=== PATIENT | female | born 1990 | race Caucasian/White ===

== ENCOUNTER 2017-07-23 21:19 | Emergency (ER) | payer OTHER ==
[~2017-07-23] VITALS: Ht 165.1 cm; Wt 124.7 kg
[2017-07-23] MEDS ORDERED: CELEXA10 MG (21:28)
[2017-07-23 21:48] LABS: URINE BILIRUBIN NEGATIVE (Negative); URINE BLOOD 1+ (Negative); URINE CLARITY CLEAR; URINE COLOR YELLOW; URINE GLUCOSE-RANDOM NEGATIVE (Negative); URINE KETONES NEGATIVE (Negative); URINE LEUKOCYTES-REFLEX TRACE (Negative); URINE NITRITE-REFLEX NEGATIVE (Negative); URINE PROTEIN NEGATIVE (Negative); URINE SPECIFIC GRAVITY >= 1.030 (1.005-1.030); URINE UROBILINOGEN 0.2 E.U./dl (0.2-1.0)
[2017-07-23 21:49] LABS: ABSOLUTE BASOPHILS 0.1 thou/uL (0.0-0.2); ABSOLUTE EOSINOPHILS 0.9 thou/uL (0.0-0.7); ABSOLUTE LYMPHOCYTES 3.2 thou/uL (0.8-5.3); ABSOLUTE MONOCYTES 0.9 thou/uL (0.0-1.2); ABSOLUTE NEUTROPHILS 13.1 thou/uL (1.6-8.1); BASOPHILS 0.5 %; HEMOGLOBIN 13.6 gm/dL (12.0-15.0); LYMPHOCYTES 17.7 %; MCH 25.9 pg (26.0-34.0); MCHC 32.5 g/dL (28.0-37.0); MCV 79.9 fL (80.0-100.0); MONOCYTES 5.1 %; MPV 8.8 fl. (7.2-11.1); NUCLEATED RBCS 0 /100WBC; PLATELET COUNT* 276 thou/uL (150-400); POLYS 71.7 %; RBC 5.26 mil/uL (4.20-5.00); RDW-CV 15.3 % (10.5-14.5); WBC 18.2 thou/uL (4.0-11.0)
[2017-07-23 21:57] LABS: SQUAMOUS >10 Many /LPF (0-3)
[2017-07-23 21:58] LABS: CASTS None Seen /LPF (None Seen); CRYSTALS None Seen /LPF (None Seen); MUCUS None Seen strn/LPF (None Seen)
[2017-07-23 21:59] LABS: ANION GAP 12 mmol/L (7-16); BUN 10 mg/dL (7-18); CALCIUM 9.3 mg/dL (8.5-10.1); CHLORIDE 103 mmol/L (98-107); CO2 25 mmol/L (21-32); CREATININE 0.7 mg/dL (0.6-1.3); GLUCOSE 93 mg/dL (70-99); POTASSIUM 3.8 mmol/L (3.5-5.1); SODIUM 140 mmol/L (136-145)
[2017-07-23 22:01] LABS: URINE RBC 0-2 Rare /HPF (0-2); URINE WBC-REFLEX 0-5 Rare /HPF (0-5)
[2017-07-23 22:06] LABS: ALBUMIN 3.6 g/dL (3.4-5.0); ALKALINE PHOSPHATASE 81 U/L (46-116); LIPASE 153 U/L (73-393); SGOT 31 U/L (15-37); SGPT 23 U/L (30-65); TOTAL BILIRUBIN 0.2 mg/dL (<0.1-1.0); TOTAL PROTEIN 7.6 g/dL (6.4-8.2); TROPONIN-I LEVEL <0.06 ng/mL (<0.06)
[2017-07-23] MEDS ORDERED: CARAFATE 1 GM TA1 G1 PO (23:02)
[2017-07-23 23:14] VITALS: BP 115/70
--- NOTE | 2017-07-24 14:49 | EKG ---
[place] [address] ELECTROCARDIOGRAM REPORT Name: KALA PICKERING Room: [facility]#: [id number] Admission: 07/23/17 Attend Phys: Discharge: 07/23/17 Date of : [birth year] Report #: [id number] THIS REPORT FOR: //name// [facility] ED Test Date: 2017-07-23 Test Time: 21:31:59 Pat Name: KALA PICKERING Department: Room: Gender: F [employer]: OLIVIA : 1990 Requested By: Gonzalo Bradshaw Order Number: [id number] MD: Wilfred Guerrero Measurements Intervals [place] Rate: 88 P: 43 [place]: 131 QRS: 26 QRSD: 82 T: -16 QT: 322 QTc: 390 Interpretive Statements Sinus rhythm No previous ECG available for comparison Electronically Signed On 07-24-2017 14:49:22 CDT by Wilfred Guerrero [email or web address] <ELECTRONICALLY SIGNED> By: Wilfred Guerrero MD, [facility] 07/24/17 1449 2131 2131 Wilfred Guerrero MD, FACC /EPI
== END 2017-07-23 23:14 | disposition home or self-care (01) ==
LOC: M.ERS 21:19
PROVIDERS: Emergency Medicine Emergency Medical Services
DX: R10.13 Epigastric pain (principal); R11.0 Nausea

== ENCOUNTER 2017-09-13 08:46 | Emergency (ER) | payer OTHER ==
[~2017-09-13] VITALS: Ht 162.6 cm; Wt 122.5 kg
[~2017-09-13 08:46] MED LIST: CARAFATE 1 GM TA1 G1 PO; CELEXA10 MG
[2017-09-13 09:21] LABS: HEMATOCRIT 39.6 % (37.0-47.0); HEMOGLOBIN 13.1 gm/dL (12.0-15.0); MCH 26.3 pg (26.0-34.0); MCHC 33.2 g/dL (28.0-37.0); MCV 79.2 fL (80.0-100.0); MPV 8.9 fl. (7.2-11.1); NUCLEATED RBCS 0 /100WBC; PLATELET COUNT* 249 thou/uL (150-400); RDW-CV 14.8 % (10.5-14.5); WBC 9.8 thou/uL (4.0-11.0)
[2017-09-13 09:21] LABS: URINE BILIRUBIN NEGATIVE (Negative); URINE BLOOD 3+ (Negative); URINE CLARITY CLEAR; URINE COLOR YELLOW; URINE GLUCOSE-RANDOM NEGATIVE (Negative); URINE KETONES TRACE (Negative); URINE LEUKOCYTES-REFLEX 1+ (Negative); URINE NITRITE-REFLEX NEGATIVE (Negative); URINE PROTEIN 1+ (Negative); URINE UROBILINOGEN 0.2 E.U./dl (0.2-1.0)
[2017-09-13 09:27] LABS: CASTS None Seen /LPF (None Seen); CRYSTALS None Seen /LPF (None Seen); MUCUS None Seen strn/LPF (None Seen); SQUAMOUS >10 Many /LPF (0-3); URINE WBC-REFLEX 6-15 Few /HPF (0-5)
[2017-09-13 09:30] LABS: CALCIUM 9.3 mg/dL (8.5-10.1); CREATININE 0.8 mg/dL (0.6-1.3); POTASSIUM 4.1 mmol/L (3.5-5.1)
[2017-09-13 09:40] LABS: ALBUMIN 3.5 g/dL (3.4-5.0); TOTAL BILIRUBIN 0.3 mg/dL (<0.1-1.0)
[2017-09-13 09:44] LABS: ABSOLUTE BASOPHILS 0.1 thou/uL (0.0-0.2); ABSOLUTE EOSINOPHILS 1.9 thou/uL (0.0-0.7); ABSOLUTE MONOCYTES 0.4 thou/uL (0.0-1.2); ABSOLUTE NEUTROPHILS 5.5 thou/uL (1.6-8.1); PLATELET ESTIMATE ADEQUATE
[2017-09-13] MEDS ORDERED: PHENERGAN 25 MG25 M1 PO (10:40)
[2017-09-13] MEDS ORDERED: ULTRAM 50MG TAB50 MG PO (10:40)
[2017-09-13] MEDS ORDERED: CARAFATE 1 GM TA1 GM PO (10:40)
[2017-09-13 11:27] VITALS: BP 111/70
[2017-09-14 07:43] LABS: HEPATITIS B SURFACE AG Negative (Negative)
== END 2017-09-13 11:28 | disposition home or self-care (01) ==
LOC: M.ERS 08:46
PROVIDERS: Personal Emergency Response Attendant
DX: K27.9 Peptic ulcer, site unspecified, unspecified as acute or chronic, without hemorrhage or perforation (principal); F32.9 Major depressive disorder, single episode, unspecified; F41.9 Anxiety disorder, unspecified; Z98.890 Other specified postprocedural states

== ENCOUNTER 2017-10-03 21:44 | Emergency (ER) | payer OTHER ==
[~2017-10-03] VITALS: Ht 165.1 cm; Wt 116.1 kg
[~2017-10-03 21:44] MED LIST changes: +CARAFATE 1 GM TA1 GM PO; +PHENERGAN 25 MG25 M1 PO; +ULTRAM 50MG TAB50 MG PO
[2017-10-03 22:37] LABS: HEMATOCRIT 40.2 % (37.0-47.0); HEMOGLOBIN 13.4 gm/dL (12.0-15.0); MCH 26.6 pg (26.0-34.0); MCHC 33.4 g/dL (28.0-37.0); MCV 79.9 fL (80.0-100.0); MPV 9.2 fl. (7.2-11.1); NUCLEATED RBCS 0 /100WBC; PLATELET COUNT* 291 thou/uL (150-400); RBC 5.03 mil/uL (4.20-5.00); RDW-CV 14.9 % (10.5-14.5); WBC 9.6 thou/uL (4.0-11.0)
[2017-10-03 22:37] LABS: URINE BILIRUBIN NEGATIVE (Negative); URINE BLOOD NEGATIVE (Negative); URINE CLARITY CLEAR; URINE COLOR YELLOW; URINE GLUCOSE-RANDOM NEGATIVE (Negative); URINE KETONES TRACE (Negative); URINE NITRITE-REFLEX NEGATIVE (Negative); URINE PROTEIN 1+ (Negative); URINE UROBILINOGEN 0.2 E.U./dl (0.2-1.0)
[2017-10-03 22:44] LABS: CALCIUM 9.3 mg/dL (8.5-10.1); CREATININE 0.8 mg/dL (0.6-1.3); POTASSIUM 3.3 mmol/L (3.5-5.1)
[2017-10-03 22:46] LABS: URINE LEUKOCYTES-REFLEX 3+ (Negative)
[2017-10-03 22:48] LABS: ALBUMIN 3.7 g/dL (3.4-5.0); TOTAL BILIRUBIN 0.3 mg/dL (<0.1-1.0); TOTAL PROTEIN 7.2 g/dL (6.4-8.2)
[2017-10-03 23:20] LABS: ABSOLUTE EOSINOPHILS 0.7 thou/uL (0.0-0.7); ABSOLUTE LYMPHOCYTES 4.3 thou/uL (0.8-5.3); ABSOLUTE MONOCYTES 0.4 thou/uL (0.0-1.2); ABSOLUTE NEUTROPHILS 4.2 thou/uL (1.6-8.1); PLATELET ESTIMATE ADEQUATE
[2017-10-03 23:23] LABS: CASTS None Seen /LPF (None Seen); SQUAMOUS >10 Many /LPF (0-3); URINE WBC-REFLEX >25 Many /HPF (0-5)
[2017-10-03 23:24] LABS: BACTERIA-REFLEX >30 Many /HPF (None Seen); CRYSTALS None Seen /LPF (None Seen); MUCUS 4-6 Moderate strn/LPF (None Seen); URINE RBC 0-2 Rare /HPF (0-2)
[2017-10-04] MEDS ORDERED: HYDROCODON-ACE1 EAC7 PO (00:07)
[2017-10-04] MEDS ORDERED: BACTRIM DS TAB1 EACH PO (00:16)
[2017-10-04 00:25] VITALS: BP 112/80
== END 2017-10-04 00:28 | disposition home or self-care (01) ==
LOC: M.ERS 21:44
PROVIDERS: Emergency Medicine
DX: N39.0 Urinary tract infection, site not specified (principal); F41.9 Anxiety disorder, unspecified; F32.9 Major depressive disorder, single episode, unspecified

== ENCOUNTER 2017-10-15 22:24 | Emergency (ER) | payer OTHER ==
[~2017-10-15] VITALS: Ht 162.6 cm; Wt 113.4 kg
[~2017-10-15 22:24] MED LIST changes: +BACTRIM DS TAB1 EACH PO; +HYDROCODON-ACE1 EAC7 PO
[2017-10-15] MEDS ORDERED: PROTONIX40 M1 PO (22:34)
[2017-10-15 22:47] LABS: ABSOLUTE BASOPHILS 0.1 thou/uL (0.0-0.2); ABSOLUTE LYMPHOCYTES 3.1 thou/uL (0.8-5.3); ABSOLUTE MONOCYTES 0.5 thou/uL (0.0-1.2); ABSOLUTE NEUTROPHILS 5.6 thou/uL (1.6-8.1); BASOPHILS 1.1 %; EOSINOPHILS 9.8 %; HEMATOCRIT 40.8 % (37.0-47.0); HEMOGLOBIN 13.6 gm/dL (12.0-15.0); LYMPHOCYTES 30.5 %; MCH 26.9 pg (26.0-34.0); MCHC 33.3 g/dL (28.0-37.0); MCV 80.9 fL (80.0-100.0); MONOCYTES 4.5 %; MPV 9.5 fl. (7.2-11.1); NUCLEATED RBCS 0 /100WBC; PLATELET COUNT* 253 thou/uL (150-400); POLYS 54.1 %; RBC 5.05 mil/uL (4.20-5.00); RDW-CV 14.8 % (10.5-14.5); WBC 10.3 thou/uL (4.0-11.0)
[2017-10-15 22:57] LABS: CALCIUM 9.1 mg/dL (8.5-10.1); CREATININE 0.7 mg/dL (0.6-1.3); POTASSIUM 3.3 mmol/L (3.5-5.1)
[2017-10-15 23:01] LABS: ALBUMIN 3.6 g/dL (3.4-5.0); TOTAL BILIRUBIN 0.3 mg/dL (<0.1-1.0); TOTAL PROTEIN 7.1 g/dL (6.4-8.2)
[2017-10-15] MEDS ORDERED: ZOFRAN ODT4 MG PO (23:10)
[2017-10-15] MEDS ORDERED: HYDROCODONE-AP1 EAC6 PO (23:10)
[2017-10-15 23:12] LABS: URINE BLOOD 3+ (Negative); URINE COLOR DARK YELLOW; URINE GLUCOSE-RANDOM NEGATIVE (Negative); URINE KETONES 1+ (Negative); URINE NITRITE-REFLEX NEGATIVE (Negative); URINE PROTEIN 1+ (Negative)
[2017-10-15 23:13] LABS: URINE BILIRUBIN 1+ (Negative); URINE CLARITY HAZY; URINE LEUKOCYTES-REFLEX 2+ (Negative)
[2017-10-15] MEDS ORDERED: MACROBID 100 M100 M1 PO (23:21)
[2017-10-15 23:22] VITALS: BP 113/68
[2017-10-15 23:27] LABS: ICTOTEST (BILI CONFIRMATORY) Negative (Negative)
[2017-10-15 23:30] LABS: BACTERIA-REFLEX >30 Many /HPF (None Seen); CASTS None Seen /LPF (None Seen); CRYSTALS None Seen /LPF (None Seen); MUCUS >6 Heavy strn/LPF (None Seen); SQUAMOUS 0-3 Few /LPF (0-3); TRANSITIONAL EPITHEL CELL 0-3 Few /LPF (None Seen); WBC CLUMPS Few (None Seen)
== END 2017-10-15 23:23 | disposition home or self-care (01) ==
LOC: M.ERS 22:24
PROVIDERS: Physician Assistant
DX: N39.0 Urinary tract infection, site not specified (principal); F41.9 Anxiety disorder, unspecified; F32.9 Major depressive disorder, single episode, unspecified

== ENCOUNTER 2017-11-09 16:53 | Emergency (ER) | payer OTHER ==
[~2017-11-09] VITALS: Ht 162.6 cm; Wt 119.5 kg
[~2017-11-09 16:53] MED LIST changes: +HYDROCODONE-AP1 EAC6 PO; +MACROBID 100 M100 M1 PO; +PROTONIX40 M1 PO; +ZOFRAN ODT4 MG PO
[2017-11-09] MEDS ORDERED: TRAZODONE HCL50 MG PO (17:04)
[2017-11-09] MEDS ORDERED: [UNRECOGNIZED DRUG - OTHER] PO (17:04)
[2017-11-09 17:27] LABS: ABSOLUTE BASOPHILS 0.1 thou/uL (0.0-0.2); ABSOLUTE EOSINOPHILS 1.2 thou/uL (0.0-0.7); ABSOLUTE LYMPHOCYTES 2.9 thou/uL (0.8-5.3); ABSOLUTE MONOCYTES 0.8 thou/uL (0.0-1.2); ABSOLUTE NEUTROPHILS 8.7 thou/uL (1.6-8.1); BASOPHILS 0.7 %; EOSINOPHILS 8.7 %; HEMOGLOBIN 12.4 gm/dL (12.0-15.0); LYMPHOCYTES 21.1 %; MCH 26.6 pg (26.0-34.0); MCHC 32.7 g/dL (28.0-37.0); MCV 81.3 fL (80.0-100.0); MONOCYTES 5.5 %; NUCLEATED RBCS 0 /100WBC; PLATELET COUNT* 262 thou/uL (150-400); RBC 4.68 mil/uL (4.20-5.00); RDW-CV 15.1 % (10.5-14.5); WBC 13.6 thou/uL (4.0-11.0)
[2017-11-09 17:43] LABS: CREATININE 0.7 mg/dL (0.6-1.3); POTASSIUM 3.8 mmol/L (3.5-5.1)
[2017-11-09 17:48] LABS: ALBUMIN 3.1 g/dL (3.4-5.0); SALICYLATE < 2.8 mg/dL (2.8-20.0); TOTAL BILIRUBIN 0.1 mg/dL (<0.1-1.0)
[2017-11-09 17:49] LABS: ACETAMINOPHEN < 2 ug/mL (10-30); ALCOHOL < 10 mg/dL (<10)
[2017-11-09 18:04] LABS: URINE BILIRUBIN NEGATIVE (Negative); URINE BLOOD 3+ (Negative); URINE CLARITY CLOUDY; URINE COLOR YELLOW; URINE GLUCOSE-RANDOM NEGATIVE (Negative); URINE KETONES TRACE (Negative); URINE NITRITE-REFLEX NEGATIVE (Negative); URINE PROTEIN 1+ (Negative); URINE UROBILINOGEN 0.2 E.U./dl (0.2-1.0)
[2017-11-09 18:07] LABS: URINE LEUKOCYTES-REFLEX 2+ (Negative)
[2017-11-09 18:15] LABS: MUCUS None Seen strn/LPF (None Seen); SQUAMOUS >10 Many /LPF (0-3); URINE WBC-REFLEX 6-15 Few /HPF (0-5)
[2017-11-09 18:16] LABS: BACTERIA-REFLEX 1-9 Few /HPF (None Seen); CASTS None Seen /LPF (None Seen); CRYSTALS None Seen /LPF (None Seen)
[2017-11-09 18:18] LABS: AMP/METHAMP Negative (Negative); BARBITURATES Negative (Negative); BENZODIAZEPINES Negative (Negative); COCAINE Negative (Negative); METHADONE Negative (Negative); OPIATES Negative (Negative); PCP Negative (Negative); THC Negative (Negative)
--- NOTE | 2017-11-10 10:43 | EKG ---
[place] [address] ELECTROCARDIOGRAM REPORT Name: KALA PICKERING Room: [facility]#: [id number] Admission: 11/09/17 Attend Phys: Discharge: Date of : [birth year] Report #: [id number] THIS REPORT FOR: //name// [facility] ED Test Date: 2017-11-09 Test Time: 17:27:07 Pat Name: KALA PICKERING Department: Room: Gender: F [employer]: : 1990 Requested By: Gonzalo Bradshaw Order Number: [id number] MD: Javier Chávez Measurements Intervals [place] Rate: 87 P: 49 [place]: 130 QRS: 39 QRSD: 78 T: 10 QT: 372 QTc: 448 Interpretive Statements Sinus rhythm Compared to ECG 07/23/2017 21:31:59 No significant changes Electronically Signed On 11-10-2017 10:42:48 CDT by Javier Chávez [email or web address] <ELECTRONICALLY SIGNED> By: Javier Chávez MD, [facility] 11/10/17 1042 1727 1727 Javier Chávez MD, FACC /EPI
[2017-11-10 18:25] VITALS: BP 142/68
== END 2017-11-10 18:25 ==
LOC: M.ERS 16:53
PROVIDERS: Emergency Medicine Emergency Medical Services
DX: T43.212A Poisoning by selective serotonin and norepinephrine reuptake inhibitors, intentional self-harm, initial encounter (principal); F41.9 Anxiety disorder, unspecified; F32.9 Major depressive disorder, single episode, unspecified; Y92.213 High school as the place of occurrence of the external cause

== ENCOUNTER 2018-01-18 23:45 | Emergency (ER) | payer OTHER ==
[~2018-01-18] VITALS: Ht 162.6 cm; Wt 122.5 kg
[~2018-01-18 23:45] MED LIST changes: +TRAZODONE HCL50 MG PO; +[UNRECOGNIZED DRUG - OTHER] PO
[2018-01-19] MEDS ORDERED: PREDNISONE 20 M20 MG PO (01:00)
[2018-01-19 01:08] VITALS: BP 120/79
== END 2018-01-19 01:09 | disposition home or self-care (01) ==
LOC: M.ERS 23:45
DX: L50.9 Urticaria, unspecified (principal); T45.0X5A Adverse effect of antiallergic and antiemetic drugs, initial encounter; T38.0X5A Adverse effect of glucocorticoids and synthetic analogues, initial encounter; F41.9 Anxiety disorder, unspecified; F32.9 Major depressive disorder, single episode, unspecified; Y92.89 Other specified places as the place of occurrence of the external cause

== ENCOUNTER 2020-06-18 19:20 | Emergency (ER) | payer OTHER ==
[~2020-06-18] VITALS: Ht 170.2 cm; Wt 104.3 kg
[~2020-06-18 19:20] MED LIST changes: -CELEXA10 MG; +CELEXA10 MG PO; +PREDNISONE 20 M20 MG PO
[2020-06-18 19:36] LABS: ICTOTEST (BILI CONFIRMATORY) Negative (Negative); URINE BILIRUBIN 1+ (Negative); URINE BLOOD NEGATIVE (Negative); URINE CLARITY CLEAR; URINE COLOR YELLOW; URINE GLUCOSE-RANDOM NEGATIVE (Negative); URINE KETONES NEGATIVE (Negative); URINE LEUKOCYTES-REFLEX NEGATIVE (Negative); URINE NITRITE-REFLEX NEGATIVE (Negative); URINE PROTEIN NEGATIVE (Negative); URINE SPECIFIC GRAVITY 1.025 (1.005-1.030); URINE UROBILINOGEN 0.2 E.U./dl (0.2-1.0)
[2020-06-18 20:20] VITALS: BP 111/61
== END 2020-06-18 20:21 | disposition home or self-care (01) ==
LOC: M.ERS 19:20
PROVIDERS: Physician Assistant
DX: T74.21XA Adult sexual abuse, confirmed, initial encounter (principal); F32.9 Major depressive disorder, single episode, unspecified; F41.9 Anxiety disorder, unspecified; Z98.890 Other specified postprocedural states; Z79.899 Other long term (current) drug therapy; Y07.9 Unspecified perpetrator of maltreatment and neglect